=== PATIENT | female | born 1980 | race American Indian/Alaskan Native ===

== ENCOUNTER → 2018-04-01 10:05 | Outpatient (CLI) | payer OTHER, SELFPAY ==
--- NOTE | 2018-04-01 | DI.RAD.S_ITS ---
PROCEDURE: XR CHEST 2V INDICATIONS: COUGH TECHNIQUE: 2 views of the chest were acquired. COMPARISON: [facility], , CHEST 2 VIEW, 04/02/2017, 13:10. FINDINGS: Surgical changes and devices: Cholecystectomy clips are seen. Lungs and pleura: No pleural effusions or pneumothorax. Lungs are clear. Mediastinum: Mediastinal contours are normal. Heart size is normal. Bones and chest wall: No suspicious bony abnormalities. Soft tissues appear unremarkable. IMPRESSION: No focal infiltrates are seen. Dictated by: Amos Keller M.D. on 04/01/2018 at 9:33 Approved by: Amos Keller M.D. on 04/01/2018 at 9:33
== END ==
PROVIDERS: PCP Family Medicine; Visit Provider Physician Assistant
DX: R05 Cough (principal)
CPT/HCPCS: 71046

== ENCOUNTER → 2018-08-25 09:47 | Outpatient (CLI) | payer OTHER, SELFPAY ==
--- NOTE | 2018-08-25 | DI.RAD.S_ITS ---
PROCEDURE: XR WRIST LT MIN 3V INDICATIONS: LEFT WRIST PAIN TECHNIQUE: 4 views of the wrist were acquired. COMPARISON: None. FINDINGS: Bones: No fractures or dislocations. No suspicious bony lesions. Scaphoid view: Scaphoid is grossly intact. Soft tissues: No suspicious soft tissue calcifications. IMPRESSION: Unremarkable radiographic examination of left wrist. No finding to account for patient's symptoms. Dictated by: Ankit Hannon M.D. on 08/25/2018 at 10:38 Approved by: Ankit Hannon M.D. on 08/25/2018 at 10:39
--- NOTE | 2018-08-25 | DI.RAD.S_ITS ---
PROCEDURE: XR HAND LT MIN 3V INDICATIONS: lt hand pain TECHNIQUE: 3 views of the hand(s) acquired. COMPARISON: None. FINDINGS: Bones: No fractures or dislocations. Carpal bones are normally aligned. No suspicious bony lesions. Soft tissues: No suspicious soft tissue calcifications. IMPRESSION: Unremarkable radiographic examination of left hand. Dictated by: Ankit Hannon M.D. on 08/25/2018 at 10:39 Approved by: Ankit Hannon M.D. on 08/25/2018 at 10:41
== END ==
PROVIDERS: Family Provider Family Medicine; PCP Family Medicine; Visit Provider Family Medicine
DX: M25.532 Pain in left wrist (principal); M79.642 Pain in left hand
CPT/HCPCS: 73110; 73130

== ENCOUNTER → 2019-11-19 18:20 | Outpatient (ROUT) | payer OTHER, SELFPAY ==
[2019-11-19 18:34] LABS: Alanine Aminotransferase 19 IU/L (<35); Albumin 3.9 g/dL (3.5-5.0); Albumin Globulin Ratio 1.4 (1.0-2.8); Alkaline Phosphatase 59 U/L (38-126); Aspartate Aminotransferase 21 IU/L (14-36); BUN Creatinine Ratio 15.4 (6-22); Bilirubin Total 0.2 mg/dL (0.2-1.3); Blood Urea Nitrogen 10 mg/dL (7-17); Calcium 9.3 mg/dL (8.4-10.2); Carbon Dioxide 26 mmol/L (22-32); Chloride 105 mmol/L (98-107); Estimated Glomerular Filt Rate > 60.0 mL/min (>60); Globulin 2.8 g/dL (1.7-4.1); Glucose 102 mg/dL (70-100); HEMOLYSIS < 15 (0-50); Potassium 4.5 mmol/L (3.4-5.1); Sodium 136 mmol/L (137-145); Total Protein 6.7 g/dL (6.3-8.2)
[2019-11-19 18:35] LABS: Add Manual Diff / Slide Review NO; Basophils Absolute Auto 100 /uL (0-100); Basophils Percent Auto 0.7 % (0-2); Eosinophils Absolute Auto 300 /uL (0-450); Hematocrit 35.6 % (36-46); Hemoglobin 11.7 g/dL (12.0-16.0); Lymphocytes Absolute Auto 2300 /uL (1100-4500); Lymphocytes Percent Auto 27.6 % (25-40); Mean Corpuscular Hemoglobin 26.9 PG (26-34); Mean Corpuscular Volume 81.4 fL (80-100); Monocytes Absolute Auto 500 /uL (0-900); Monocytes Percent Auto 5.7 % (3-14); Neutrophils Absolute Auto 5100 /uL (1500-7000); Platelet Count 489 X10^3/uL (150-400); Red Blood Cell Count 4.37 X10^6/uL (4.0-5.2); Red Cell Distribution Width 14.8 % (11.6-14.8); White Blood Cell Count 8.2 X10^3/uL (4.5-11.0)
[2019-11-19 19:04] LABS: Thyroid Stimulating Hormone 1.32 uIU/mL (0.47-4.68)
[2019-11-19 19:08] LABS: D Dimer < 200 ng/mL (<230)
== END ==
PROVIDERS: Family Provider Family Medicine; PCP Family Medicine; Visit Provider Family Medicine
DX: R60.9 Edema, unspecified (principal); D64.9 Anemia, unspecified
CPT/HCPCS: 80053; 84443; 85025; 85379

== ENCOUNTER 2020-05-06 22:57 | Emergency (ER) | payer OTHER, SELFPAY ==
[2020-05-06 23:10] VITALS: BP 188/94; PULSE 93; RESP 16; TEMP 36.6; O2SAT 98; BMI 41.5
--- NOTE | 2020-05-06 23:20 | DI.CT.S_ITS ---
PROCEDURE: CT HEAD/BRAIN WO CON INDICATIONS: right arm and leg tingling TECHNIQUE: Noncontrast 4.5 mm thick angled axial sections acquired from the foramen magnum to the vertex, with coronal and sagittal reformats. For radiation dose reduction, the following was used: automated exposure control, adjustment of mA and/or kV according to patient size. COMPARISON: [facility], MR, MR BRAIN WITHOUT CONTRAST, 10/10/2018, 17:36. FINDINGS: Image quality: Excellent. CSF spaces: Basal cisterns are patent. No extra-axial fluid collections. Ventricles are normal in size and shape. Brain: No midline shift. No intracranial masses or hemorrhage. Waters-white matter interface is normal. Skull and face: Calvarium and visualized facial bones are intact, without suspicious lesions. Sinuses: Visualized sinuses and mastoids are clear. IMPRESSION: Normal noncontrast head CT. Note: No significant discrepancy from the preliminary report. Dictated by: Amos Keller M.D. on 05/07/2020 at 7:43 Approved by: Amos Keller M.D. on 05/07/2020 at 7:44
--- NOTE | 2020-05-06 23:23 | ED.NEUROSD ---
HPI - Neuro Symptoms/Deficit General Chief Complaint: Neuro Symptoms/Deficit Stated Complaint: Numbness/headache/lt eye drooping Time Seen by Provider: 05/06/20 23:05 Source: patient Mode of arrival: Ambulatory Limitations: no limitations History of Present Illness HPI Narrative: Patient is a 39-year-old female with history of asthma presenting with right arm and leg numbness which started yesterday. She says her arm started 1st she noticed it in her hand. She did not really remember what she was doing however it persisted in even today she kept moving around thinking that it was position. She then did develop a headache at the base of her skull. She does have a history of migraines and has not had a migraine in some time. She started noticing her leg with off and on as well as being numb. Her thought her left eye was droopy and recommended she come to the ED for stroke workup. He is noted to be hypertensive however she states that her noticed her left eye was swollen. She denies any visual changes. Onset (ago): day(s) Location: right arm and right leg Severity: mild Quality: numb and tingling Relieving factors: none Exacerbating factors: none Context: gradual onset On Anticoagulants: No Associated symptoms: other (Headache) Related Data Home Medications Medication Instructions Recorded Confirmed levothyroxine 75 mcg tablet 75 mcg PO DAILY 12/19/18 12/19/18 valacyclovir 500 mg tablet 1,000 mg PO .unk PRN tab 12/19/18 12/19/18 albuterol sulfate INHALATION PRN 03/19/19 03/19/19 eletriptan PO 03/19/19 03/19/19 famotidine 20 mg tablet 20 mg PO .unk PRN tab 03/19/19 03/19/19 fluticasone propion-salmeterol INHALATION PRN 03/19/19 03/19/19 ipratropium-albuterol INHALATION PRN 03/19/19 03/19/19 ondansetron HCl 8 mg tablet 8 mg PO .unk PRN tab 03/19/19 03/19/19 Previous Rx's Medication Instructions Recorded oxycodone-acetaminophen 0 tab PO Q3HP PRN #20 tab 03/23/16 fremanezumab-vfrm 225 mg/1.5 mL 675 mg SUBCUT [id number] #4.5 ml 08/09/19 subcutaneous syringe erenumab-aooe 140 mg/mL 140 mg SUBCUT QMONTH #1 ml 12/25/18 subcutaneous auto-injector Allergies Allergy/AdvReac Type Severity Reaction Status Date / Time No Known Drug Allergies Allergy Verified 03/19/19 10:45 Review of Systems Review of Systems Narrative: GENERAL: Denies chills, fatigue, malaise, fever, sweats, travel HEENT: Denies sinus pain, ear pain, sore throat, difficulty swallowing, neck pain RESPIRATORY: Denies dyspnea, cough, wheezing, hemoptysis, sputum. CARDIOVASCULAR: Denies chest pain, palpitations, orthopnea, edema GASTROINTESTINAL: Denies nausea, vomiting, abdominal pain, diarrhea, constipation, melena. : Denies dysuria, frequency, incontinence, hematuria, urinary retention, flank pain. MUSCULOSKELETAL: Denies weakness, joint pain, or bony pain SKIN: No rash, no erythema, no pruritus NEUROLOGIC: See HPI PSYCHIATRIC: No concerning psychosocial issues. 12 point review of systems is negative except for those stated above and HPI Patient History Medical History Chronic migraine Surgical History History of third molar tooth extraction Status post laparoscopic cholecystectomy Social History Smoking Status: Never smoker Smoking Status: Never smoker Substance Use Type: does not use Exam Initial Vital Signs Initial Vital Signs: Vital Signs Temperature 98 F 05/06/20 23:10 Pulse Rate 93 H 05/06/20 23:10 Respiratory Rate 16 05/06/20 23:10 Blood Pressure 188/94 H 05/06/20 23:10 Pulse Oximetry 98 05/06/20 23:10 GENERAL: Overweight pleasant female and in no acute distress. HEENT: Head atraumatic,EOMI, pupils reactive, face symmetric, moist mucous membranes CARDIOVASCULAR: Regular rate and rhythm without murmurs, rubs or gallops. RESPIRATORY: Breath sounds equal bilaterally, no wheezes rales or rhonchi. ABDOMEN: Soft, nontender. Normoactive bowel sounds all 4 quadrants. No guarding or rebound. EXTREMITIES: Normal range of motion, no clubbing or edema. Neurovascularly intact NEUROLOGICAL: Alert and oriented x4.Normal gait and speech. Cranial nerves II through XII grossly intact. Good [id number], good [id number], strength equal bilaterally, no dysarthria or aphasia, sensation in tact to soft touch bilaterally, no visual changes, no facial droop SKIN: Warm, dry, no laceration, no petechiae, no rashes or lesions. Scores NIH Stroke Scale Level of Conciousness: Alert, keenly responsive Ask month/age: Answers both questions correctly. Open/close eyes, close hand: Performs both tasks correctly Best gaze horizontal: Normal Visual small: No visual loss Facial palsy: Normal symetrical movement Left arm drift: No drift for full 10 sec Right arm drift: No drift for full 10 sec Left leg drift: No drift for full 5 sec Right leg drift: No drift for full 5 sec Limb ataxia: Absent Sensory on face/arms/legs: Mild to moderate sensory loss, can tell touch Best language: No aphasia, normal Dysarthria: Normal Extinction or inattention: No abnormality Total NIH Stroke scale score: 1 Course Orders Ordered: ED Orders 05/06/20 23:20 CT head/brain wo con Stat 05/06/20 23:21 EKG-12 Lead Stat 05/06/20 23:25 Complete Blood Count AUTO DIFF Stat Comprehensive Metabolic Panel Stat Partial Thromboplastin Time Stat Prothrombin Time INR Stat Troponin & CK Cardiac Panel Stat Discontinued Medications Ketorolac Tromethamine (Ketorolac 60 Mg/2 Ml Vial) 15 mg IV NOW ONE Stop: 05/07/20 00:39 Last Admin: 05/07/20 00:43 Dose: 15 mg Documented by: Vital Signs Vital signs: Vital Signs - 8 hr 05/06/20 23:10 05/06/20 23:30 05/07/20 00:48 Temperature 98 F Pulse Rate 93 H 82 79 Respiratory Rate 16 13 16 Blood Pressure 188/94 H 173/96 H 155/79 H Pulse Oximetry 98 98 99 MDM - Neuro Symptoms/Deficit Lab Data Attestation: I reviewed the patient's lab results. Result diagrams: 05/06/20 23:25 05/06/20 23:25 Labs: Lab Results 05/06/20 05/06/20 05/06/20 Range/Units 23:25 23:25 23:25 WBC 8.4 (4.5-11.0) X10^3/uL RBC 4.42 (4.0-5.2) X10^6/uL Hgb 11.7 L (12.0-16.0) g/dL Hct 35.2 L (36-46) % MCV 79.6 L (80-100) fL MCH 26.4 (26-34) PG MCHC 33.1 (30-36) % RDW 14.6 (11.6-14.8) % Plt Count 457 H (150-400) X10^3/uL Neut % (Auto) 50.1 (50-75) % Lymph % (Auto) 35.5 (25-40) % [place] % (Auto) 7.1 (3-14) % Eos % (Auto) 6.2 H (2-4) % Baso % (Auto) 1.1 (0-2) % Neut # (Auto) 4200 (9039-6647) /uL Lymph # (Auto) 3000 (2182-7290) /uL [place] # (Auto) 600 (0-900) /uL Eos # (Auto) 500 H (0-450) /uL Baso # (Auto) 100 (0-100) /uL PT 11.0 (10.1-12.7) SECONDS INR 1.0 (0.9-1.3) APTT 33 (26.4-36.2) SECONDS Sodium 139 (137-145) mmol/L Potassium 4.2 (3.4-5.1) mmol/L Chloride 106 (98-107) mmol/L Carbon Dioxide 29 (22-32) mmol/L BUN 13 (7-17) mg/dL Creatinine 0.91 (0.52-1.04) mg/dL Estimated GFR > 60.0 (>60) mL/min BUN/Creatinine Ratio 14.3 (6-22) Glucose 108 H (70-100) mg/dL Calcium 8.6 (8.4-10.2) mg/dL Total Bilirubin 0.2 (0.2-1.3) mg/dL AST 17 (14-36) IU/L ALT 20 (<35) IU/L Alkaline Phosphatase 60 (38-126) U/L Total Creatine Kinase 49 (30-135) U/L CK-MB (CK-2) TNP CK-MB (CK-2) Rel Index TNP Troponin I < 0.012 (0.01-0.034) ng/mL Total Protein 7.5 (6.3-8.2) g/dL Albumin 3.7 (3.5-5.0) g/dL Globulin 3.8 (1.7-4.1) g/dL Albumin/Globulin Ratio 1.0 (1.0-2.8) Imaging Data CT scan - head: Radiologist's Impression: Preliminary report: No acute intracranial process ECG Data Attestation: I personally reviewed and interpreted this ECG as follows: Prior ECG tracings: not available for review Interpretation: Normal sinus rhythm rate 76 p.r. interval 144 QRS [address] changes or T-wave inversions incomplete right bundle-branch MDM Narrative Medical decision making narrative: The patient has some numbness and tingling in her right arm ongoing for over 24 hours. No other focal deficits head CT is negative. Likely paresthesias. Head CT and blood work were overall reassuring. At this time recommend she follow-up with her PCP. I discussed all findings with the patient , Education has been performed regarding treatment plan, diagnosis, warning signs and symptoms and all concerns have been addressed. Verbally agree with and understood all of the above. Discharge Plan Departure Patient Disposition: Home Clinical Impression: Arm paresthesia, right Instructions: DI for Numbness/Tingling Activity Restrictions/Additional Instructions: *You have been diagnosed with paresthesias *What to do: At this time no evidence of any stroke or stroke. May be related to your migraine as well. *Continue to take medications as directed *Follow up with your primary care provider in 2-3 days *Return to ER if you should have increasing weakness, difficulty speaking, visual changes, balance issues or any new, worsening or concerning symptoms Prescriptions: No Action oxycodone-acetaminophen 5 MG/325 MG tablet 0 tab PO Q3HP PRNQty: 20 RF: 0 Aimovig Autoinjector 140 mg/mL auto-injector 140 mg SUBCUT QMONTH Qty: 1 RF: 5 valacyclovir 500 mg tablet 1,000 mg PO .unk PRNRF: 0 levothyroxine [Synthroid] 75 mcg tablet 75 mcg PO DAILY RF: 0 Ajovy Syringe 225 mg/1.5 mL syringe 675 mg SUBCUT [id number] Qty: 4.5 RF: 3 albuterol sulfate inhalation PRNRF: 0 ipratropium-albuterol INHALATION PRNRF: 0 fluticasone propion-salmeterol INHALATION PRNRF: 0 famotidine 20 mg tablet 20 mg PO .unk PRNRF: 0 ondansetron HCl 8 mg tablet 8 mg PO .unk PRNRF: 0 eletriptan PO RF: 0 Referrals: Barbara Jauregui MD [Primary Care Provider] -
[2020-05-06 23:30] VITALS: BP 173/96; PULSE 82; RESP 13; O2SAT 98
[2020-05-06 23:30] LABS: Add Manual Diff / Slide Review NO; Basophils Absolute Auto 100 /uL (0-100); Basophils Percent Auto 1.1 % (0-2); Eosinophils Absolute Auto 500 /uL (0-450); Eosinophils Percent Auto 6.2 % (2-4); Hematocrit 35.2 % (36-46); Hemoglobin 11.7 g/dL (12.0-16.0); Lymphocytes Absolute Auto 3000 /uL (1100-4500); Lymphocytes Percent Auto 35.5 % (25-40); Mean Corpuscular HGB Conc 33.1 % (30-36); Mean Corpuscular Hemoglobin 26.4 PG (26-34); Mean Corpuscular Volume 79.6 fL (80-100); Monocytes Absolute Auto 600 /uL (0-900); Monocytes Percent Auto 7.1 % (3-14); Neutrophils Absolute Auto 4200 /uL (1500-7000); Neutrophils Percent Auto 50.1 % (50-75); Platelet Count 457 X10^3/uL (150-400); Red Blood Cell Count 4.42 X10^6/uL (4.0-5.2); Red Cell Distribution Width 14.6 % (11.6-14.8); White Blood Cell Count 8.4 X10^3/uL (4.5-11.0)
[2020-05-06 23:38] LABS: PTT Partial Thromboplastin Tim 33 SECONDS (26.4-36.2)
[2020-05-06 23:40] LABS: Alanine Aminotransferase 20 IU/L (<35); Albumin 3.7 g/dL (3.5-5.0); Alkaline Phosphatase 60 U/L (38-126); Aspartate Aminotransferase 17 IU/L (14-36); BUN Creatinine Ratio 14.3 (6-22); Bilirubin Total 0.2 mg/dL (0.2-1.3); Blood Urea Nitrogen 13 mg/dL (7-17); Calcium 8.6 mg/dL (8.4-10.2); Carbon Dioxide 29 mmol/L (22-32); Chloride 106 mmol/L (98-107); Creatine Kinase 49 U/L (30-135); Estimated Glomerular Filt Rate > 60.0 mL/min (>60); Globulin 3.8 g/dL (1.7-4.1); Glucose 108 mg/dL (70-100); HEMOLYSIS < 15 (0-50); Potassium 4.2 mmol/L (3.4-5.1); Sodium 139 mmol/L (137-145); Total Protein 7.5 g/dL (6.3-8.2)
[2020-05-06 23:52] LABS: Troponin I < 0.012 ng/mL (0.01-0.034)
[2020-05-07] MEDS: KETOROLAC 60 MG/2 ML VIAL 15 MG IV (00:43)
[2020-05-07 00:48] VITALS: BP 155/79; PULSE 79; RESP 16; O2SAT 99
== END 2020-05-07 00:48 | disposition home or self-care (01) ==
PROVIDERS: Emergency Provider Emergency Medicine; Family Provider Family Medicine; PCP Family Medicine
DX: R20.2 Paresthesia of skin (principal); I10 Essential (primary) hypertension; H02.402 Unspecified ptosis of left eyelid; E66.3 Overweight; Z68.41 Body mass index [BMI] 40.0-44.9, adult; G43.709 Chronic migraine without aura, not intractable, without status migrainosus
CPT/HCPCS: 36415; 70450; 80053; 82550; 84484; 85025; 85610; 85730; 93005; 96374; 99284; J1885